=== PATIENT | female | born 1980 ===

== ENCOUNTER 2017-12-03 12:45 | Inpatient (IN) | payer OTHER ==
[~2017-12-03] VITALS: Ht 160 cm; Wt 78.9 kg
[~2017-12-03 12:45] MED LIST: ATIVAN2 M1 PO; SYNTHROID75 MCG PO
[2017-12-21] MEDS ORDERED: PRENATAL TABLE1 EACH PO (08:39)
[2017-12-23] MEDS ORDERED: PREPLUS CA-FE1 EACH PO (08:07)
[2017-12-23] MEDS ORDERED: IBUPROFEN600 MG PO (08:08)
== END 2017-12-23 11:28 | disposition home or self-care (01) | DRG 767 ==
LOC: LDR 12:45 → OB/GYN 12-21 07:48 → LDR 12-21 07:48 → OB/GYN 12-21 14:03
PROC: 10E0XZZ Delivery of Products of Conception, External Approach (ICD-10-PCS; principal; 2017-12-21)
PROC: 10907ZC Drainage of Amniotic Fluid, Therapeutic from Products of Conception, Via Natural or Artificial Opening (ICD-10-PCS; 2017-12-21)
PROC: 4A033R1 Measurement of Arterial Saturation, Peripheral, Percutaneous Approach (ICD-10-PCS; 2017-12-21)
PROC: 4A1HXCZ Monitoring of Products of Conception, Cardiac Rate, External Approach (ICD-10-PCS; 2017-12-21)
PROC: 0UL70ZZ Occlusion of Bilateral Fallopian Tubes, Open Approach (ICD-10-PCS; 2017-12-22)
DX: O48.0 Post-term pregnancy (principal); Z3A.40 40 weeks gestation of pregnancy; Z37.0 Single live birth; Z30.2 Encounter for sterilization; O09.523 Supervision of elderly multigravida, third trimester